=== PATIENT | female | born 1980 | race Two or more races ===

== ENCOUNTER 2024-12-24 11:05 | Emergency (ER) | payer MEDICAID ==
[~2024-12-24] VITALS: Ht 170.2 cm; Wt 90.3 kg
[2024-12-24] MEDS ORDERED: ALPRAZOLAM 0.5 MG TABLET ONE (11:31)
[2024-12-24] MEDS: ALPRAZOLAM 0.5 MG TABLET PO ONE (11:34)
[2024-12-24 12:27] VITALS: BP 128/96; TEMP 98.5; O2SAT 97
== END 2024-12-24 12:29 | disposition home or self-care (01) ==
LOC: ER 11:18
DX: F43.9 Reaction to severe stress, unspecified (principal); I10 Essential (primary) hypertension
CPT/HCPCS: 71045-TC